=== PATIENT | female | born 1985 | race Caucasian/White ===

== ENCOUNTER → 2021-01-24 09:10 | Outpatient (BNVA) | payer SELFPAY | DX: Z13.89 Encounter for screening for other disorder (principal) ==

== ENCOUNTER 2023-06-04 10:11 | Outpatient (AMB) | payer OTHER, SELFPAY ==
--- NOTE | 2023-06-04 10:17 | HO.NEPHOV_ITS ---
HPI HPI Comments History of Present Illness Details I had the privilege of seeing Monica in follow-up of her hypertension. She is an chief operating officer. She monitors her blood pressure closely. She is compliant with her medications. She has lost some weight. She denies any chest pain, shortness of breath, proximal nocturnal dyspnea, orthopnea, pedal edema, urinary symptoms or orthostasis. She seldom takes excessive nonsteroidal anti- inflammatories. She had history of very mild proteinuria in the past. She is good with her diet. She has strong family history of hypertension. Her last hemoglobin A1c was over 6. PFSH Medical History (Updated 06/06/23 @ 09:14 by Paresh Horan MD) Hypertension Surgical History (Updated 06/04/23 @ 10:23 by Vannessa Hopkins MA) H/O section Hx of appendectomy Family History (Updated 06/04/23 @ 10:24 by Vannessa Hopkins MA) Mother Lung cancer Father Prostate cancer Hypertension Brother Diabetes Social History (Updated 06/04/23 @ 10:24 by Vannessa Hopkins MA) Alcohol intake: current Comment: Socially Patient Tobacco Use Status: Former Tobacco user Vital Signs 06/04/23 10:19 Height 5 ft 4 in Weight 170 lb 2 oz BMI 29.2 BP 130/82 Blood Pressure Location Rt brachial Position Sitting Pulse 77 Pulse Source Pulse Oximeter Pulse Oximetry (%) 98 Oxygen Delivery Method Room Air Physical Exam Vital Signs: Last Vital Signs Pulse 77 06/04/23 10:19 BP 130/82 06/04/23 10:19 Pulse Ox 98 06/04/23 10:19 Oxygen Delivery Method Room Air 06/04/23 10:19 BMI result Body Mass Index 29.2 Const General: comfortable and no acute distress Orientation/consciousness: patient oriented x3 HEENT Head: Yes normocephalic Mouth: Normal oral and palatal mucosa present Eyes EOM: EOMs intact bilaterally Neck Neck: Yes supple Resp Auscultation: clear to auscultation bilaterally Cardio Jugular venous distension: no JVD Rate: regular rate GI Palpation (GI): Soft to palpation Auscultation: normal bowel sounds General: Yes no CVA tenderness Back/Spine/Pelvis Back: no CVA tenderness Skin General skin exam: no rashes or lesions noted Neuro General: patient oriented x3 and moves all extremities Extrem General: Yes no pedal edema Assessment & Plan Assessment & Plan (1) Hypertension: Code(s): I10 - Essential (primary) hypertension Qualifiers: Hypertension type: primary hypertension Qualified Code(s): I10 - Essential (primary) hypertension (2) Proteinuria: Code(s): R80.9 - Proteinuria, unspecified Qualifiers: Proteinuria type: other Qualified Code(s): R80.8 - Other proteinuria Plan Monica has hypertension and is on losartan as well as carvedilol. Her blood pressure is well controlled on the current medication regimen. She has history of proteinuria. He has no edema. Her renal functions are normal. Her hemoglobin A1c was just over 6 last time. She has lost weight. I asked her to cut back more sodium in the diet and encouraged her to be more active. She avoids nonsteroidal anti-inflammatories. She needs to maintain good hydration. I ordered urinalysis, 24 hour urine for protein along with renal functions and hemoglobin A1c. I did not make any medication changes today. All questions answered. Follow-up given. Orders: Orders Protein, 24 Hr Urine Group 06/04/23 I10 - Essential (primary) hypertension, R80.9 - Proteinuria, unspecified UA and rflx microscopic 06/04/23 I10 - Essential (primary) hypertension, R80.9 - Proteinuria, unspecified Protein Creatinine Ratio, Ur 06/04/23 I10 - Essential (primary) hypertension, R80.9 - Proteinuria, unspecified Hemoglobin A1c 06/04/23 I10 - Essential (primary) hypertension, R80.9 - Proteinuria, unspecified Medications: New losartan 50 mg PO BID 90 days 180 tabs 4RF Coding Level of Care Code Est Pt Level 3 (05680) Diagnoses Primary hypertension I10 Hypertension type: primary hypertension Other proteinuria R80.8 Proteinuria type: other Results Reviewed Nephrology Results: No Data to Display
[2023-06-04 10:19] VITALS: BP 130/82; PULSE 77; O2SAT 98; BMI 29.2
== END 2023-06-04 10:48 | disposition home or self-care (01) ==
PROVIDERS: Visit Provider Internal Medicine Nephrology
DX: I10 Essential (primary) hypertension (principal); R80.8 Other proteinuria
CPT/HCPCS: 99213

== ENCOUNTER → 2023-06-04 10:11 | Outpatient (BNVA) | payer OTHER, SELFPAY | PROVIDERS: Visit Provider Internal Medicine Nephrology ==